=== PATIENT | female | born 1950 | race Caucasian/White ===

== ENCOUNTER 2016-12-21 14:41 | Day surgery (SDC) | payer BC ==
[~2016-12-21] VITALS: Ht 157.5 cm; Wt 59.7 kg
[2016-12-21 15:15] VITALS: Ht 157.5 cm; Wt 59.7 kg
[2016-12-21] MEDS ORDERED: LISI10TA2 PO (15:23)
[2016-12-21] MEDS ORDERED: MECL12.574 PO (15:23)
[2016-12-21] MEDS ORDERED: SIMV20TA2 PO (15:23)
[2016-12-21 16:14] VITALS: BP 187/79; PULSE 69; RESP 20
[2016-12-21] MEDS ORDERED: LIDOCAINE 2% (SDV) 5 ML INJ ONE (16:19)
[2016-12-21] MEDS ORDERED: PROPOFOL 20 ML ONE (16:19)
[2016-12-21] MEDS ORDERED: MIDAZOLAM 1 MG/ML 2 ML INJ ONE (16:20)
--- NOTE | 2016-12-21 16:43 | OPPN ---
Date/Time of Note Date/Time of Note DATE: 12/21/16 TIME: 16:41 Operative Report Preoperative Diagnosis Screening Postoperative Diagnosis 2 small colon polyps were removed Melanosis coli Internal hemorrhoids Operation/Procedure Performed Colonoscopy and biopsy Provider: DAMIAN TRUONG MD Anesthesia Type: MAC Estimated blood loss: none Transfusion Required: no Specimens Colon polyps Grafts/Implants: none Complications: no DAMIAN TRUONG MD Dec 21, 2016 16:43
[2016-12-21 17:12] VITALS: BP 147/72; PULSE 61; RESP 22
--- NOTE | 2016-12-21 17:54 | GILP ---
DATE OF PROCEDURE: 12/21/2016 PROCEDURE PERFORMED: Colonoscopy and biopsy. SURGEON: Bouchra Ramirez MD PREOPERATIVE DIAGNOSIS: Screening colonoscopy. POSTOPERATIVE DIAGNOSES: 1. Colonoscopy all the way to the cecum. 2. Two small colon polyps were removed using the biopsy forceps. 3. Melanosis coli. 4. Internal hemorrhoids. INDICATION: Ms. Stacey El is a 66-year-old female patient who was scheduled for screening colonoscopy. The procedure and possible complications were well explained to the patient. She understood and consented to the procedure. DESCRIPTION OF PROCEDURE: Under influence of anesthesia, the colonoscope was carefully introduced in the rectum, and under direct vision, it was advanced all the way to the cecum. FINDINGS: The patient had 2 small colon polyps, and they were removed using the biopsy forceps. The patient had melanosis coli and internal hemorrhoids. She tolerated the procedure very well. There was no complication from the procedure. At the end of procedure, she was awake with stable vital signs, and she was discharged home in the care of her family. IMPRESSION: Please see postoperative diagnoses. PLAN: Next screening colonoscopy in 10 years. Dictated By: MD BERTHA Andrew/bill/tm /Document#: [id number]
== END 2016-12-21 17:41 | disposition home or self-care (01) ==
LOC: GIL 14:41
PROVIDERS: ATTEND Internal Medicine Gastroenterology
DX: Z12.11 Encounter for screening for malignant neoplasm of colon (principal); K63.5 Polyp of colon; K63.89 Other specified diseases of intestine; K64.8 Other hemorrhoids; I10 Essential (primary) hypertension
CPT/HCPCS: 45380; 88305; J2250; Z7610